=== PATIENT | male | born 1945 | race African-American/Black ===

== ENCOUNTER 2018-06-21 09:30 | Observation (INO) | payer MEDICARE ==
[2018-06-21] VITALS (14 sets, daily range): BP systolic 153–219; BP diastolic 85–113
[~2018-06-21] VITALS: Ht 180.3 cm; Wt 92.1 kg
[~2018-06-21 09:30] MED LIST: CIPRO500 MG OR; CIPROFLOXACN500 MG PO; CLONIDINE0.2 MG OR; DEPO-TESTOS100 MG/ML IM; FLONASE SPRAY50 MCG; LORTAB 5/3255 MG PO; NAPROSYN500 MG PO; NO MEDS; ULTRAM50 M1 PO; VENTOLIN HFA IN
--- NOTE | 2018-06-21 09:35 | NUR ---
PATIENT ARRIVES TO ED VIA EMS, SENT BY [facility].
[2018-06-21 10:16] LABS: HEMATOCRIT 43.7 % (39.0-50.0); HEMOGLOBIN 13.9 g/dl (14.0-18.0); IMMATURE GRANULOCYTES 0.3 % (0.0-5.0); MEAN CELL VOLUME 83.2 fL CALC (80.0-100.0); MEAN CORPUSCULAR HGB 26.5 pG CALC (26.0-32.0); MEAN CORPUSCULAR HGB CONC 31.8 g/L CALC (32.0-36.0); NEUT# 4.01 thou/uL (1.82-7.42); RED BLOOD COUNT 5.25 mill/uL (4.70-6.10); RED CELL DISTRI WIDTH 15.8 % (11.5-15.5)
--- NOTE | 2018-06-21 10:30 | NUR ---
PATIENT CONTINUES IN RADIOLOGY DEPARTMENT.
[2018-06-21 11:23] LABS: ALBUMIN 4.3 g/dL (3.2-5.0); ALKALINE PHOSPHATASE 145 u/l (38-126); ANION GAP 14 (6-22 (CALC)); BUN 14 mg/dL (8-23); BUN/CREATININE RATIO 12 (12-20 (CALC)); CARBON DIOXIDE 28 mmol/l (22-30); CHLORIDE 103 mmol/l (95-108); CREATININE 1.2 mg/dL (0.7-1.3); GFR 59 ML/MIN (>=60 (CALC)); GFR FOR AFR.AMER. > 60 ML/MIN (>=60 (CALC)); POTASSIUM 3.9 mmol/l (3.5-5.1); SGOT/AST 21 u/l (19-48); SODIUM 141 mmol/l (137-146); TOTAL PROTEIN 8.7 g/dL (6.3-8.2)
--- NOTE | 2018-06-21 11:27 | NUR ---
PATIENT ALERT AND ORIENTED X4. BP 176/98 HR 80. TOLERATING CARDENE DRIP WELL AT 5 MG/HR. WARM BLANKET GIVEN. CALL LIGHT WITHIN REACH.
--- NOTE | 2018-06-21 12:05 | NUR ---
AT BEDSIDE TO DISCUSS RESULTS.
--- NOTE | 2018-06-21 13:05 | NUR ---
PATIENT TO RADIOLOGY FOR ULTRASOUND.
--- NOTE | 2018-06-21 13:11 | NUR ---
REPORT RECVD FROM DAMI PARRA. PT IN RADIOLOGY THEN WILL COME TO ICU 2.
--- NOTE | 2018-06-21 13:11 | NUR ---
REPORT CALLED TO DAMI VELOZ IN ICU.
[2018-06-21 14:06] LABS: URINE BILIRUBIN - DIPSTICK NEGATIVE (NEGATIVE); URINE BLOOD DIPSTICK NEGATIVE (NEGATIVE); URINE COLOR YELLOW; URINE GLUCOSE - DIPSTICK NEGATIVE (NEGATIVE); URINE KETONE NEGATIVE (NEGATIVE); URINE LEUK ESTERASE NEGATIVE (Negative); URINE NITRITE - DIPSTICK NEGATIVE (Negative); URINE PROTEIN - DIPSTICK NEGATIVE (NEG-TRACE); URINE SPECIFIC GRAVITY <=1.005; URINE UROBILINOGEN - DIPSTICK 0.2 E.U./dL (0.2)
--- NOTE | 2018-06-21 14:25 | NUR ---
PT ARRIVED TO ICU 2 ON STRETCHER IN STABLE CONDITION. PT ABLE TO TRANSFER TO NEW BED WITH STEADY GAIT, UNASSISTED. PT ON MONITORS & IV MEDS.
--- NOTE | 2018-06-21 14:30 | NUR ---
PT WOKE UP FEELING DIZZY, WENT TO HEALTH DEPT, WAS SENT TO [facility] ER. PT DENIES S/S AT THIS TIME. PT BRAGS THAT HES HAD HTN x20 YEARS AND DOESNT TAKE MEDICINE FOR IT. STATES HE HAS A BP CUFF AT HOME AND OCCASSIONAL CHECKS HIS BP WITH RESULTS OVER 200. PT STATES MULTIPLE SURGERIES ON BILATERAL WRISTS/HANDS & LEFT SHOULDER. DENIES OTHER HISTORY. UNKNOWN FAMILY HX. PT REFUSES FLU/PNA VACCINE. HAD A LARGE/BROWN/FORMED BM THIS AM, DOES NOT NEED LAXATIVES. DESIREE FALLS. LIVES WITH GIRLFRIEND OF 17 YEARS. FEELS SAFE. DOES NOT USE A MOBILITY AID, DRIVES SELF. DENIES PAIN. PRIMARY LANGUAGE IS IRANIAN. DENIES [employer] PREFERENCE. LUNG SOUNDS CLEAR, BREATHING EVEN/UNLABORED. MURMUR. STRONG PULSES x4. GURDEEP HOSE ON. RENAN. DESIREE SMOKING/DRINKING/DRUGS. ABD SOFT/NONTENDER, ACTIVE BS. 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 EYES PERRLA @3. NO EDEMA. URINAL ON BEDSIDE. PT EDUCATED ON BED & CALLBELL SYSTEM.
[2018-06-21 14:33] LABS: URINE CLARITY CLEAR
--- NOTE | 2018-06-21 14:35 | NUR ---
PATIENT TRANSPORTED TO ICU FROM ULTRASOUND BY DAMI DC.
--- NOTE | 2018-06-21 15:30 | NUR ---
PT COMPLETED ORAL CONTRAST FOR CT.
--- NOTE | 2018-06-21 16:10 | NUR ---
BROUGHT PTS HOME MEDS BACK. APPROVAL FORM FILLED OUT AND MEDS SENT TO PHARMACY.
--- NOTE | 2018-06-21 16:26 | NUR ---
RAQUEL, CASE MANAGEMENT, @BEDSIDE WITH PT.
--- NOTE | 2018-06-21 17:24 | NUR ---
PT OFF UNIT TO RADIOLOGY.
--- NOTE | 2018-06-21 17:29 | NUR ---
PT BACK TO ICU BED 2. SITTING UP IN BED, EATING DINNER.
--- NOTE | 2018-06-21 17:52 | NUR ---
DIETARY AT BEDSIDE FOR MEAL PREFERENCES.
--- NOTE | 2018-06-21 18:50 | NUR ---
REPORT FROM Ana Paula LOPEZ RN. ASSUMED PT. CARE.
--- NOTE | 2018-06-21 19:45 | NUR ---
PT. AMBULATORY WITH STEADY GAIT TO RESTROOM. REPORTS LARGE BROWN BOWEL MOVEMENT AT THIS TIME. AWAKE, ALERT, ORIENTED X 3. SKIN WARM AND DRY. PHUONG. STARKS. DENIES COMPLAINTS OF PAIN. HYPERTENSIVE, WILL MEDICATE ORDERED. RESPS EVEN AND UNLABORED. LUNGS CTA. S1,S2 NOTED. SINUS IN THE 80'S. NO DISTRESS. BOWEL SOUNDS ACTIVE THROUGHOUT. MILD 1+ EDEMA NOTED. DISTIL PULSES INTACT THROUGHOUT. WILL CONTINUE TO MONITOR.
--- NOTE | 2018-06-21 21:00 | NUR ---
PT. MEDICATED PER PHYSICIAN ORDERS. PROVIDED WITH HS SNACK AND PITCHER OF WATER. CALL LIGHT WITHIN REACH. PT. DENIES COMPLAINT OR NEED. WATCHING TELEVISION IN NO DISTRESS.
--- NOTE | 2018-06-21 23:09 | NUR ---
PT. RESTING IN BED WITH EYES CLOSED IN NO DISTRESS. RESPS REMAIN EVEN AND UNLABORED. BP IMPROVED. WILL CONTINUE TO CLOSELY MONITOR.
[2018-06-22] VITALS (13 sets, daily range): BP systolic 137–188; BP diastolic 73–108
--- NOTE | 2018-06-22 00:05 | NUR ---
PT. AMBULATORY TO AND FROM RESTROOM AT THIS TIME. REMAINS AFEBRILE. PT. REPORTED MODERATE BM AT THIS TIME. NO DISTRESS. BP REMAINS IMPROVED. PT. DENIES COMPLAINTS OF PAIN OR NEED. WILL CONTINUE TO MONITOR.
--- NOTE | 2018-06-22 01:55 | NUR ---
PT. REMAINS STABLE IN NO DISTRESS. BP IMPROVED AT THIS TIME. CALL LIGHT REMAINS WITHIN REACH. WILL CONTINUE TO ASSESS.
--- NOTE | 2018-06-22 03:15 | NUR ---
PT. REMAINS EASILY AROUSABLE TO LIGHT VERBAL STIMULI. RESTING IN BED WITH EYES CLOSED IN NO DISTRESS. CALL LIGHT REMAINS WITHIN REACH.
[2018-06-22 04:25] LABS: HEMATOCRIT 39.4 % (39.0-50.0); HEMOGLOBIN 12.7 g/dl (14.0-18.0); IMMATURE GRANULOCYTES 0.1 % (0.0-5.0); MEAN CELL VOLUME 82.6 fL CALC (80.0-100.0); MEAN CORPUSCULAR HGB 26.6 pG CALC (26.0-32.0); MEAN CORPUSCULAR HGB CONC 32.2 g/L CALC (32.0-36.0); NEUT# 4.73 thou/uL (1.82-7.42); RED BLOOD COUNT 4.77 mill/uL (4.70-6.10); RED CELL DISTRI WIDTH 15.9 % (11.5-15.5)
[2018-06-22 04:56] LABS: ALBUMIN 3.7 g/dL (3.2-5.0); ALKALINE PHOSPHATASE 123 u/l (38-126); AMYLASE 67 u/l (30-110); ANION GAP 12 (6-22 (CALC)); BILIRUBIN, TOTAL 0.9 mg/dL (0.0-1.4); BUN 12 mg/dL (8-23); BUN/CREATININE RATIO 11 (12-20 (CALC)); CARBON DIOXIDE 29 mmol/l (22-30); CHLORIDE 103 mmol/l (95-108); CREATININE 1.1 mg/dL (0.7-1.3); GFR > 60 ML/MIN (>=60 (CALC)); GFR FOR AFR.AMER. > 60 ML/MIN (>=60 (CALC)); LIPASE 68 u/l (23-300); POTASSIUM 3.7 mmol/l (3.5-5.1); SGOT/AST 19 u/l (19-48); SODIUM 141 mmol/l (137-146); TOTAL PROTEIN 7.4 g/dL (6.3-8.2)
--- NOTE | 2018-06-22 05:05 | NUR ---
LAB AT BEDSIDE AT THIS TIME. PT. REMAINS EASILY AROUSABLE TO LIGHT VERBAL STIMULI. CALL LIGHT REMAINS WITHIN REACH. VOICES NO COMPLAINTS OR NEEDS. WILL CONTINUE TO CLOSELY MONITOR.
--- NOTE | 2018-06-22 07:37 | NUR ---
PT SITTING UP IN BED, WATCHING TV. STATES HE DIDNT SLEEP TO WELL BC HES IN PAIN FROM HIS PX SURGERIES. WHEN ASKED, PT ADMITS HIS TESTICLES ARE 2X SIZE OF NORMAL SINCE HE HAD SURGERY FOR GALLSTONES. PT ALSO FORGOT TO MENTION HE HAD GALLBLADDER STONES, KIDNEY STONES, CHEECK IMPLANTS, AND PROSTATE SURGERIES. PT REFUSES PAIN MEDICINE STATING IT MAKES HIM CONSTIPATED SO HE'D RATHER NOT TAKE THEM AT ALL. EXPLAINED THAT WE HAVE MEDICINE FOR CONSTIPATION WELL. PT STILL REFUSED.
--- NOTE | 2018-06-22 08:15 | NUR ---
PT SITTING UP ON SIDE OF BED, EATING BREAKFAST.
--- NOTE | 2018-06-22 08:55 | NUR ---
PT EDUCATED ON BP MEDS; INCLUDING INDICATION & SIDE EFFECTS.
--- NOTE | 2018-06-22 10:00 | NUR ---
FRIEND BROUGHT PTS MEDICAL "PAPERWORK" FROM HOME. PAPERWORK COPIED & ADDED TO FOLDER.
--- NOTE | 2018-06-22 10:30 | NUR ---
PT SLEEPING IN BED. NO S/S OF DISTRESS AT THIS TIME. CALLBELL W/IN REACH. WILL CONTINUE TO MONITOR.
--- NOTE | 2018-06-22 11:42 | NUR ---
DR BOWIE @BEDSIDE WITH PT & BROTHER. DISCUSSING TEST RESULTS.
--- NOTE | 2018-06-22 11:52 | NUR ---
PT SITTING UP ON SIDE OF BED, EATING LUNCH. BROTHER LEFT. PT DOES NOT HAVING QUESTIONS AT THIS TIME RE: TEST RESULTS.
--- NOTE | 2018-06-22 12:00 | NUR ---
DR BOWIE, DR AIKEN CONSULTED BY HIM.
--- NOTE | 2018-06-22 12:05 | NUR ---
PER DR BOWIE, DR AIKEN WILL BE IN TOMORROW AM TO SEE PT. DO NOT PLACE FUNK.
--- NOTE | 2018-06-22 12:28 | NUR ---
REPORT CALLED TO ELISSA FISHER ON M[facility]. PT WILL GO TO [facility] 289.
--- NOTE | 2018-06-22 13:00 | NUR ---
DR BOWIE AWARE THAT PT HAS METAL IN BOTH WRISTS, LEFT SHOULDER, & BOTH CHEEKBONES THAT IS OVER 10 YEARS OLD.
--- NOTE | 2018-06-22 14:04 | NUR ---
PT OUT THE DOOR TO MSU BY . PT TRANSFERED TO BY SELF WITH STEADY GAIT. ALL BELONGINGS SENT TO ROOM 289.
--- NOTE | 2018-06-22 14:04 | NUR ---
PT TRANSFERRED TO MED/SURG ROOM 289 IN STABLE CONDITION VIA WHEELCHAIR ACCOMPANIED BY THIS WRITTER AND AMARA MARES;PT AMBULATED WITH A STEADY GAIT TO STANDING SCALE AND BEDSIDE;WT AND VS OBTAINED BY AMARA MARES;PT ALERT AND ORIENTED X3, ORIENTED TO ROOM AND CALL LIGHT SYSTEM;ASSESSMENT COMPLETED;RESPIRATIONS EVEN AND UNLABORED ON RA,CLEAR LUNG SOUNDS;ABDOMEN DISTENDED/SOFT ON PALPATION AND ACTIVE IN ALL 4 QUADRANTS, PT REPORTS LAST BM 06/21/18;STRONG PEDAL PULSES;SKIN INTACT;EDEMA NOTED TO SCROTAL AREA, ENCOURAGED ELEVATION;TELE MONITORING PLACED ON PT;#18G TO LAC FLUSHED AND PATENT,SITE APPEARS HEALTHY;FRESH WATER PROVIDED;PT DENIES ANY CURRENT PAIN,PAIN SCALE AND REPORTING EDUCATED;ENCOURAGED PT TO CALL FOR ASSISTANCE IF NEEDED;FALL PRECAUTIONS IN PLACE WITH BED IN THE LOWEST POSITION AND CALL LIGHT IN REACH;WILL CONTINUE TO MONITOR
--- NOTE | 2018-06-22 15:55 | NUR ---
PT APPEARS TO BE SLEEPING IN SUPINE POSITION;NO S/S OF DISTRESS NOTED;RESPIRATIONS EVEN AND UNLABORED ON RA;TELE MONITORING IN PLACE;ALL SAFETY PRECAUTIONS REINFORCED WITH BED IN THE LOWEST POSITION AND CALL LIGHT IN REACH;WILL CONTINUE TO MONITOR
--- NOTE | 2018-06-22 22:09 | NUR ---
PT MEDICATE ORDERS PROVIDE AND PT ASSESSED AT THIS TIME. 400CC OF CLEAR YELLOW URINE EMPTIED OF URINAL. LOCX4, PT VERY TALKATIVE AND ALERT. POC DISCUSSED W/PT. LUNG SOUNDS ARE CLEAR, ABD FIRM NON-TENDER W/ACTIVE BOWEL SOUNDS. SKIN INTACT. NO NOTED EDEMA AT THIS TIME. CALL LIGHT AT BEDSIDE AND PT ENCOURAGED TO CALL IF ANY NEEDS ARISE.
[2018-06-23] VITALS (8 sets, daily range): BP systolic 99–159; BP diastolic 65–93
--- NOTE | 2018-06-23 03:30 | NUR ---
PT OFF OF UNIT FLOOR FOR CT SCAN VIA WC ACCOMPANIED BY AIDE.
--- NOTE | 2018-06-23 03:47 | NUR ---
PT RETURNED FROM CT AND ASSISTED TO BED. DENIES ANY NEEDS AT THIS TIME. CALL LIGHT AT SIDE.
[2018-06-23 05:51] LABS: HEMATOCRIT 41.4 % (39.0-50.0); HEMOGLOBIN 13.4 g/dl (14.0-18.0); IMMATURE GRANULOCYTES 0.3 % (0.0-5.0); MEAN CORPUSCULAR HGB 26.5 pG CALC (26.0-32.0); MEAN CORPUSCULAR HGB CONC 32.4 g/L CALC (32.0-36.0); NEUT# 4.42 thou/uL (1.82-7.42); RED BLOOD COUNT 5.05 mill/uL (4.70-6.10); RED CELL DISTRI WIDTH 15.8 % (11.5-15.5)
[2018-06-23 05:57] LABS: ALBUMIN 3.5 g/dL (3.2-5.0); ALKALINE PHOSPHATASE 113 u/l (38-126); ANION GAP 12 (6-22 (CALC)); BILIRUBIN, TOTAL 0.6 mg/dL (0.0-1.4); BUN 12 mg/dL (8-23); BUN/CREATININE RATIO 11 (12-20 (CALC)); CARBON DIOXIDE 28 mmol/l (22-30); CHLORIDE 103 mmol/l (95-108); CREATININE 1.1 mg/dL (0.7-1.3); GFR > 60 ML/MIN (>=60 (CALC)); GFR FOR AFR.AMER. > 60 ML/MIN (>=60 (CALC)); MAGNESIUM 1.8 mg/dL (1.6-2.3); POTASSIUM 3.5 mmol/l (3.5-5.1); SGOT/AST 17 u/l (19-48); SODIUM 139 mmol/l (137-146); TOTAL PROTEIN 7.1 g/dL (6.3-8.2)
--- NOTE | 2018-06-23 06:33 | NUR ---
PT IS SLEEPING AT THIS TIME, NO S/O DISTRESS NOTED, CALL LIGHT AT SIDE AND BED IN LOWEST POSITION.
--- NOTE | 2018-06-23 07:57 | NUR ---
PT AMBULATING IN ROOM, NO SIGNS OF DISTRESS NOTED, RESP EVEN AND UNLABORED. DISCUSSED POC, PT IN AGREEMENT, PT ALERT AND ORIENTED X4. VSS, PT C/O EDEMA TO SCROTOM STATES HE FEELS LIKE ITS GETTING WORSE, DENIES DIFFICULTY URINATING. STATES "I PEE TOO MUCH". ASSESSMENT COMPLETED. CALL LIGHT IN REACH,CONTINUE TO MONITOR.
--- NOTE | 2018-06-23 10:00 | NUR ---
INFORMED PREMIUM REPRESENTATIVE OF LOW BP, HELD PROCARDIA. PT AMBULATING IN ROOM S/O AT BEDSIDE, NO SIGNS OF DISTRESS NOTED, RESP EVEN AND UNLABORED. CALL LIGHT IN REACH,CONTINUE TO MONITOR.
--- NOTE | 2018-06-23 10:09 | NUR ---
COAL PASSER TO BEDSIDE FOR H&P.
--- NOTE | 2018-06-23 14:13 | NUR ---
PT RESTING IN BED WATCHING TV, VSS, PT VOICES NO NEEDS OR COMPLAINTS AT THIS TIME, CALL LIGHT IN REACH,CONTINUE TO MONITOR.
--- NOTE | 2018-06-23 15:12 | NUR ---
ALANIS SPOKE WITH , PER MD HE IS IN SURGERY WILL COME TO SEE PT THIS AFTERNOON OR EVENING. PT RESTING IN BED, NO SIGNS OF DISTRESS NOTED, RESP EVEN AND UNLABORED. CALL LIGHT IN REACH,CONTINUE TO MONITOR.
--- NOTE | 2018-06-23 16:34 | NUR ---
TO BEDSIDE FOR CONSULTATION.
--- NOTE | 2018-06-23 22:07 | NUR ---
PT MEDICATED ORDERS PROVIDE AND ASSESSED AT THIS TIME. LUNG SOUNDS ARE CLEAR, ABD SOFT NON-TENDER. FUNK CATHETER DRAINING DARK YELLOW URINE/STRAP IN PLACE TO LEFT LEG. DENIES PAIN AT THIS TIME. GOOD ROM IN RIGHT EXTREMETY.
[2018-06-24 00:07] VITALS: BP 136/89
--- NOTE | 2018-06-24 03:05 | NUR ---
PT SLEEPING AT THIS TIME. NO S/O DISTRESS NOTED. CALL LIGHT AT SIDE.
[2018-06-24 04:54] VITALS: BP 140/79
--- NOTE | 2018-06-24 06:17 | NUR ---
PT AWAKE WATCHING BALLGAME. NO S/O DISTRESS, DENIES ANY NEEDS. CALL LIGHT IN HAND
[2018-06-24 07:26] VITALS: BP 137/85
--- NOTE | 2018-06-24 07:26 | NUR ---
PT SITTING ON COUCH IN ROOM, NO SIGNS OF DISTRESS NOTED, RESP EVEN AND UNLABORED. PT ALERT AND ORIENTED X3, DISCUSSED POC, VSS, SWELLING TO SCROTUM, ASSESSMENT COMPLETED. CALL LIGHT IN REACH,CONTINUE TO MONITOR.
[2018-06-24 11:16] VITALS: BP 139/78
[2018-06-24] MEDS ORDERED: CARVEDILOL25 MG PO (12:33)
[2018-06-24] MEDS ORDERED: HYDROCHLOROT12.5 MG PO (12:33)
[2018-06-24] MEDS ORDERED: LOSARTAN POT50 MG PO (12:33)
[2018-06-24] MEDS ORDERED: ASPIRIN ADULT L81 MG PO (12:34)
--- NOTE | 2018-06-24 13:56 | NUR ---
Discharge instructions given. Patient verbalizes understanding of same. Discharged in stable condition via Wheelchair to Home with significant other. All belongings sent with pt.
== END 2018-06-24 13:56 | disposition home or self-care (01) ==
LOC: ED 09:30 → ED-I 12:16 → ED 12:58 → ICU 12:59 → MS2 06-22 14:07
PROVIDERS: Family Medicine; ADMIT Internal Medicine Nephrology; ATTEND Internal Medicine Nephrology
DX: I16.0 Hypertensive urgency (principal); I12.9 Hypertensive chronic kidney disease with stage 1 through stage 4 chronic kidney disease, or unspecified chronic kidney disease; N18.2 Chronic kidney disease, stage 2 (mild); T46.5X6A Underdosing of other antihypertensive drugs, initial encounter; D64.9 Anemia, unspecified; K76.89 Other specified diseases of liver; N40.1 Benign prostatic hyperplasia with lower urinary tract symptoms; R35.0 Frequency of micturition; N43.3 Hydrocele, unspecified; N21.0 Calculus in bladder; Z91.128 Patient's intentional underdosing of medication regimen for other reason; Z87.442 Personal history of urinary calculi; R51 Headache

== ENCOUNTER 2018-09-30 10:54 | Emergency (ER) | payer MEDICARE ==
[~2018-09-30] VITALS: Ht 180.3 cm; Wt 93.0 kg
[~2018-09-30 10:54] MED LIST changes: +ASPIRIN ADULT L81 MG PO; +CARVEDILOL25 MG PO; +HYDROCHLOROT12.5 MG PO; +LOSARTAN POT50 MG PO
[2018-09-30 11:35] LABS: HEMATOCRIT 42.3 % (39.0-50.0); HEMOGLOBIN 13.7 g/dl (14.0-18.0); IMMATURE GRANULOCYTES 0.3 % (0.0-5.0); MEAN CELL VOLUME 83.6 fL CALC (80.0-100.0); MEAN CORPUSCULAR HGB 27.1 pG CALC (26.0-32.0); MEAN CORPUSCULAR HGB CONC 32.4 g/L CALC (32.0-36.0); NEUT# 7.29 thou/uL (1.82-7.42); RED BLOOD COUNT 5.06 mill/uL (4.70-6.10); RED CELL DISTRI WIDTH 17.1 % (11.5-15.5)
[2018-09-30 11:50] LABS: ALKALINE PHOSPHATASE 132 u/l (38-126); ANION GAP 14 (6-22 (CALC)); BUN 22 mg/dL (8-23); BUN/CREATININE RATIO 12 (12-20 (CALC)); CARBON DIOXIDE 27 mmol/l (22-30); CHLORIDE 104 mmol/l (95-108); CPK 96 u/l (52-200); CREATININE 1.8 mg/dL (0.7-1.3); GFR 37 ML/MIN (>=60 (CALC)); GFR FOR AFR.AMER. 45 ML/MIN (>=60 (CALC)); SGOT/AST 24 u/l (19-48); SODIUM 141 mmol/l (137-146)
[2018-09-30 11:53] LABS: ALBUMIN 4.3 g/dL (3.2-5.0); BILIRUBIN, TOTAL 0.9 mg/dL (0.0-1.4); TOTAL PROTEIN 8.9 g/dL (6.3-8.2)
[2018-09-30 13:00] VITALS: BP 105/68
== END 2018-09-30 13:09 | disposition home or self-care (01) ==
LOC: ED 10:54
PROVIDERS: Emergency Medicine
DX: T67.5XXA Heat exhaustion, unspecified, initial encounter (principal); I10 Essential (primary) hypertension; X30.XXXA Exposure to excessive natural heat, initial encounter; Y93.H2 Activity, gardening and landscaping

== ENCOUNTER 2022-04-11 12:54 | Observation (INO) | payer MEDICARE ==
[2022-04-11] VITALS (17 sets, daily range): BP systolic 137–195; BP diastolic 92–115
[~2022-04-11] VITALS: Ht 180.3 cm; Wt 106.2 kg
[2022-04-11 15:18] LABS: BASO% 0.2 % (0-3); EOS% 1.5 % (0-8); HEMATOCRIT 45.7 % (39.0-50.0); HEMOGLOBIN 14.9 g/dl (14.0-18.0); IMMATURE GRANULOCYTES 0.2 % (0.0-5.0); LYMPH% 25.3 % (15-41); MEAN CELL VOLUME 84.8 fL CALC (80.0-100.0); MEAN CORPUSCULAR HGB 27.6 pG CALC (26.0-32.0); MEAN CORPUSCULAR HGB CONC 32.6 g/dL CAL (32.0-36.0); MONO% 8.5 % (2-13); NEUT# 6.64 thou/uL (1.82-7.42); NEUT% 64.3 % (42-76); RED BLOOD COUNT 5.39 mill/uL (4.70-6.10); RED CELL DISTRI WIDTH 16.1 % (11.5-15.5)
[2022-04-11 15:35] LABS: ALBUMIN 4.3 g/dL (3.2-5.0); ALKALINE PHOSPHATASE 85 u/l (38-126); ANION GAP 8 (6-22 (CALC)); BILIRUBIN, TOTAL 0.7 mg/dL (0.2-1.3); BUN 17 mg/dL (8-23); BUN/CREATININE RATIO 14 (12-20 (CALC)); CARBON DIOXIDE 29 mmol/l (22-30); CHLORIDE 104 mmol/l (95-108); CREATININE 1.2 mg/dL (0.7-1.3); GFR FOR AFR.AMER. > 60 ML/MIN (>=60 (CALC)); GFR OTHER RACES 59 ML/MIN (>=60 (CALC)); POTASSIUM 4.1 mmol/l (3.5-5.1); SGOT/AST 31 u/l (19-48); SODIUM 137 mmol/l (137-146); TOTAL PROTEIN 8.2 g/dL (6.3-8.2)
[2022-04-11 20:20] LABS: URINE BILIRUBIN - DIPSTICK NEGATIVE (NEGATIVE); URINE BLOOD DIPSTICK NEGATIVE (NEGATIVE); URINE COLOR YELLOW; URINE GLUCOSE - DIPSTICK NEGATIVE (NEGATIVE); URINE KETONE NEGATIVE (NEGATIVE); URINE LEUK ESTERASE NEGATIVE (NEGATIVE); URINE PROTEIN - DIPSTICK NEGATIVE (NEG-TRACE); URINE SPECIFIC GRAVITY >=1.030; URINE UROBILINOGEN - DIPSTICK 0.2 E.U./dL (0.2)
[2022-04-11 20:22] LABS: URINE NITRITE - DIPSTICK NEGATIVE (Negative)
[2022-04-12] VITALS (9 sets, daily range): BP systolic 133–172; BP diastolic 76–113
[2022-04-12 05:39] LABS: CHOLESTEROL HDL RATIO 3.3 (<4.4 (CALC)); MAGNESIUM 2.1 mg/dL (1.6-2.3)
[2022-04-13 05:08] VITALS: BP 146/84
[2022-04-13 05:59] LABS: BASO% 0.3 % (0-3); HEMATOCRIT 48.2 % (39.0-50.0); HEMOGLOBIN 15.7 g/dl (14.0-18.0); IMMATURE GRANULOCYTES 0.1 % (0.0-5.0); LYMPH% 28.5 % (15-41); MEAN CELL VOLUME 83.7 fL CALC (80.0-100.0); MEAN CORPUSCULAR HGB 27.3 pG CALC (26.0-32.0); MEAN CORPUSCULAR HGB CONC 32.6 g/dL CAL (32.0-36.0); MONO% 10.8 % (2-13); NEUT# 6.3 thou/uL (1.82-7.42); NEUT% 57.3 % (42-76); RED BLOOD COUNT 5.76 mill/uL (4.70-6.10); RED CELL DISTRI WIDTH 16.3 % (11.5-15.5)
[2022-04-13 06:31] LABS: ALBUMIN 4.2 g/dL (3.2-5.0); BILIRUBIN, TOTAL 0.6 mg/dL (0.2-1.3); CREATININE 1.4 mg/dL (0.7-1.3); POTASSIUM 3.6 mmol/l (3.5-5.1)
[2022-04-13 07:09] VITALS: BP 139/99
[2022-04-13 09:30] VITALS: BP 139/99
[2022-04-13] MEDS ORDERED: AMLODIPINE BESYL5 MG PO (12:56)
[2022-04-13] MEDS ORDERED: LASIX 40 MG TAB40 MG PO (12:57)
[2022-04-13] MEDS ORDERED: POT CHLORIDE10 ME5 PO (12:57)
[2022-04-13] MEDS ORDERED: ASPIRIN ADULT L81 M2 PO (12:58)
[2022-04-13] MEDS ORDERED: LISINOPRIL5 MG PO (12:58)
[2022-04-14] MEDS ORDERED: CARVEDILOL25 MG PO (10:21)
== END 2022-04-13 15:34 | disposition home or self-care (01) ==
LOC: ED 12:54 → ED-I 17:00 → ED 17:17 → MS2 17:18
PROVIDERS: Nurse Practitioner; Nurse Practitioner Family; ADMIT Internal Medicine; ATTEND Internal Medicine
DX: I11.0 Hypertensive heart disease with heart failure (principal); I50.32 Chronic diastolic (congestive) heart failure; N40.0 Benign prostatic hyperplasia without lower urinary tract symptoms; T50.2X6A Underdosing of carbonic-anhydrase inhibitors, benzothiadiazides and other diuretics, initial encounter; T46.5X6A Underdosing of other antihypertensive drugs, initial encounter; Z91.128 Patient's intentional underdosing of medication regimen for other reason; Z87.442 Personal history of urinary calculi
CPT/HCPCS: J1650

== ENCOUNTER 2022-04-13 20:31 | Observation (INO) | payer MEDICARE ==
[~2022-04-13] VITALS: Ht 180.3 cm; Wt 110.0 kg
[2022-04-13] VITALS (10 sets, daily range): BP systolic 93–145; BP diastolic 49–98
[~2022-04-13 20:31] MED LIST changes: +AMLODIPINE BESYL5 MG PO; +ASPIRIN ADULT L81 M2 PO; +LASIX 40 MG TAB40 MG PO; +LISINOPRIL5 MG PO; +POT CHLORIDE10 ME5 PO
--- NOTE | 2022-04-13 20:31 | NUR ---
PT IN ROOM VIA EMS C/O ALTERED MENTAL STATUS PER SPOUSE.
--- NOTE | 2022-04-13 20:59 | NUR ---
PT TO CT FOR STROKE ALERT
--- NOTE | 2022-04-13 20:59 | NUR ---
STROKE ALERT CALLED ON PT.
--- NOTE | 2022-04-13 21:05 | NUR ---
DR CHACORTA CAMPBELL ON TELE MONITOR TO ASSESS PT.
[2022-04-13 21:24] LABS: BASO% 0.2 % (0-3); EOS% 1.5 % (0-8); HEMATOCRIT 47.9 % (39.0-50.0); HEMOGLOBIN 15.6 g/dl (14.0-18.0); IMMATURE GRANULOCYTES 0.2 % (0.0-5.0); LYMPH% 21.7 % (15-41); MEAN CELL VOLUME 83.3 fL CALC (80.0-100.0); MEAN CORPUSCULAR HGB 27.1 pG CALC (26.0-32.0); MEAN CORPUSCULAR HGB CONC 32.6 g/dL CAL (32.0-36.0); MONO% 9.5 % (2-13); NEUT# 8.25 thou/uL (1.82-7.42); NEUT% 66.9 % (42-76); RED BLOOD COUNT 5.75 mill/uL (4.70-6.10)
[2022-04-13 21:34] LABS: ALBUMIN 4.7 g/dL (3.2-5.0); CREATININE 1.8 mg/dL (0.7-1.3); TOTAL PROTEIN 9.1 g/dL (6.3-8.2)
[2022-04-13 21:41] LABS: BILIRUBIN, TOTAL 1.4 mg/dL (0.2-1.3); INTERNATIONAL NORMALIZED RATIO 1.1 RATIO (0.7-1.3); POTASSIUM 4.1 mmol/l (3.5-5.1); PROTHROMBIN TIME 10.6 SECONDS (9.0-12.5)
--- NOTE | 2022-04-13 22:15 | NUR ---
PT'S CALLED (TORSTEN) AND SATED THAT PT'S LAST KNOWN WELL WAS APPROX 1800. REPORTED THAT PT ATTEMPTED TO USE THE RESTROOM AND URINATED ALL OVER HIMSELF; PT WAS UNABLE TO AMBULATE. PT ALSO WAS MAKING SOME THREATENING REMARKS " I WANT TO " "I AM GOIMG TO KILL YOU". THIS IS WHEN SHE CALLED EMS AND POLICE. PT GOT DISCHARGE AROUND 1500 FROM MED SURG.
[2022-04-13 22:49] LABS: URINE BILIRUBIN - DIPSTICK NEGATIVE (NEGATIVE); URINE BLOOD DIPSTICK NEGATIVE (NEGATIVE); URINE COLOR YELLOW; URINE GLUCOSE - DIPSTICK NEGATIVE (NEGATIVE); URINE KETONE NEGATIVE (NEGATIVE); URINE LEUK ESTERASE TRACE (NEGATIVE); URINE PH 5.5 (4.5-8.0); URINE PROTEIN - DIPSTICK TRACE mg/dL (NEG-TRACE); URINE SPECIFIC GRAVITY >=1.030; URINE UROBILINOGEN - DIPSTICK 0.2 E.U./dL (0.2)
[2022-04-13 22:52] LABS: URINE NITRITE - DIPSTICK NEGATIVE (Negative)
--- NOTE | 2022-04-13 23:52 | NUR ---
PT ADMITTED TO MS 260. PT TRANSPORTED VIA STRETCHER TO FLOOR. BEDSIDE REPORT GIVEN TO JASON.
--- NOTE | 2022-04-13 23:55 | NUR ---
Patient arrived to floor from ED at 2344. Left AC 20G IV present and intact. IV flushed and patent. No S/S of phlebitis or infiltration. Patient oriented to self and alert. Safety precautions and bed alarm placed by RN.
--- NOTE | 2022-04-14 00:48 | NUR ---
RN unable to complete admission due to patient's confusion. RN attempted to call Kassandra [phone], no answer. Will attempt to do admission at a later time if able to contact or if mentation status of patient improves.
[2022-04-14 04:07] VITALS: BP 120/68
--- NOTE | 2022-04-14 05:13 | NUR ---
Patient remains confused, oriented to self. Neuro checks completed. Patient able to urinate this am. Patient calm, resting in bed. Bed alarm on for safety.
[2022-04-14 07:00] VITALS: BP 142/90
--- NOTE | 2022-04-14 08:14 | NUR ---
PT AWAKE, ALERT, ORIENTED X 3. PT TO MRI AT THIS TIME.
--- NOTE | 2022-04-14 09:34 | NUR ---
PT TO MRI, U/S AND BACK. PT SEEN BY KATHY CARTER UPON RETURNING. PT EATING BREAKFAST AT THIS TIME.
[2022-04-14 10:16] LABS: CREATININE 1.5 mg/dL (0.7-1.3); POTASSIUM 3.6 mmol/l (3.5-5.1)
[2022-04-14] MEDS ORDERED: CARVEDILOL25 MG PO (10:21)
[2022-04-14 11:12] VITALS: BP 143/83
== END 2022-04-14 13:50 ==
LOC: ED 20:31 → ED-I 22:50 → ED 23:12 → MS2 23:13
PROVIDERS: Emergency Medicine; Nurse Practitioner Family; ADMIT Internal Medicine; ATTEND Internal Medicine
DX: R41.82 Altered mental status, unspecified (principal); I11.0 Hypertensive heart disease with heart failure; I50.9 Heart failure, unspecified; N40.0 Benign prostatic hyperplasia without lower urinary tract symptoms; Z87.442 Personal history of urinary calculi

== ENCOUNTER 2022-07-22 06:32 | Day surgery (SDC) | payer MEDICARE ==
[~2022-07-22] VITALS: Ht 180.3 cm; Wt 104.8 kg
[~2022-07-22 06:32] MED LIST changes: +ZESTRIL5 M1 PO
[2022-07-22] MEDS ORDERED: ASPIRIN ADULT L81 M2 PO (08:39)
[2022-07-22 09:47] VITALS: BP 138/89
== END 2022-07-22 10:50 | disposition home or self-care (01) ==
LOC: ORM 06:32
PROVIDERS: ATTEND Urology
PROC: 0VB70ZZ Excision of Left Tunica Vaginalis, Open Approach (ICD-10-PCS; principal; 2022-07-22)
PROC: 0VB60ZZ Excision of Right Tunica Vaginalis, Open Approach (ICD-10-PCS; 2022-07-22)
DX: N43.3 Hydrocele, unspecified (principal); I10 Essential (primary) hypertension; N40.1 Benign prostatic hyperplasia with lower urinary tract symptoms; N13.8 Other obstructive and reflux uropathy; Z87.442 Personal history of urinary calculi
CPT/HCPCS: J0131; J2710; S0077